=== PATIENT | male | born 1950 | race Caucasian/White ===

== ENCOUNTER → 2019-01-25 | Outpatient (CLI) | payer MEDICARE, BC ==
[~2019-01-25] MED LIST: IOPAMIDOL 76% 100 ML INFUS BTL 100 ML ONE
--- NOTE | 2019-01-25 20:07 | RADIOLOGY IMAGING REPORT ---
FACILITY: [facility] PATIENT NAME: Ion Correa : 1950 MR: [id number] V: [id number] EXAM DATE: ORDERING PHYSICIAN: [place] REDDY TECHNOLOGIST: Location: [facility] - [place] Patient: Ion Correa : 1950 Visit/Account:[id number] Date of Sevice: 01/25/2019 CT abdomen and pelvis without and with IV contrast Indication: Diarrhea. Comparison: None available. . Technique: Axial CT images were obtained through the abdomen and pelvis prior to and during injecti on of nonionic iodinated intravenous contrast. Reformatted coronal and sagittal images were also obta ined. One of the following dose optimization techniques was utilized in the performance of this exam: Autom ated exposure control; adjustment of the mA and/or kV according to the patient's size; or use of an i terative reconstruction technique. Specific details can be referenced in the facility's radiology C T exam operational policy. Contrast: 75 ml of Isovue-370 IV contrast. Findings: Lower lung anand: Limited views lower lung field are unremarkable. Liver: No focal parenchymal abnormality of the liver. Biliary: Gallbladder appears unremarkable as well as the intra and extra hepatic biliary system. Pancreas: Mild fatty infiltration. No focal abnormality. Spleen: Normal appearance. Adrenal glands: Unremarkable. Kidneys / retroperitoneum: No evidence of nephrolithiasis or hydronephrosis. No focal abnormality. Bowel / peritoneum / mesenteries: Colon shows no focal abnormality. The appendix is not visualized. N o secondary signs of appendicitis. Small bowel shows no focal normality or obstruction. The stomach i s unremarkable. No free air, free fluid, fluid collections or areas of inflammation. Small left inguinal hernia conta ining fat. Lymph node assessment: No pathologic adenopathy identified. Pelvic structures: The urinary bladder is partially decompressed and grossly normal. The remaining pelvic structures visualized within normal limits. There is a metallic density superior to the right testicle which may represent vasectomy clip. Vessels: Mild atherosclerotic calcifications seen throughout a nonaneurysmal abdominal aorta and bran ches. Musculoskeletal / Body wall: No acute or aggressive osseous abnormality. Degenerative changes spine. IMPRESSION: 1. No acute intra-abdominal abnormality 2. Other chronic findings as above. Report Dictated By: Joe Rosenbaum at 01/25/2019 7:53 PM Report E-Signed By: Joe Rosenbaum at 01/25/2019 8:04 PM WSN:[id number]
== END ==
LOC: CT 17:58
PROVIDERS: ATTEND Nurse Practitioner Family
DX: I25.10 Atherosclerotic heart disease of native coronary artery without angina pectoris (principal); M47.899 Other spondylosis, site unspecified
CPT/HCPCS: Q9967

== ENCOUNTER → 2019-01-25 | Outpatient (REF) | payer MEDICARE, BC ==
[2019-01-25 18:46] LABS: PLATELET COUNT, AUTOMATED 225 K/uL (150-450)
== END ==
PROVIDERS: ATTEND Nurse Practitioner Family
DX: R19.7 Diarrhea, unspecified (principal)
CPT/HCPCS: 82040; 82247; 82310; 82374; 82435; 82565; 82947; 84075; 84132; 84155; 84295; 84450; 84460; 84520; 85025